=== PATIENT | female | born 1950 | race Caucasian/White ===

== ENCOUNTER 2022-03-22 18:45 | Emergency (ER) | payer MEDICARE, BC ==
[~2022-03-22] VITALS: Ht 152.4 cm; Wt 81.8 kg
[~2022-03-22 18:45] MED LIST: ASPIRIN 81M81 MG/TA2 PO; ATARAX 25MG25 MG/TAB PO; BENTYL 10MG10 MG/CAP PO; CALCITRIOL PO; LIPITOR 40MG TA40 MG PO; NEURONTIN100 MG/CAP PO; NUPLAZID34 MG PO; PRILOSEC 20MG20 MG PO; SINEMET 25/101 UDTAB PO; TRELEGY ELLIPT1 EACH IH; TYLENOL 500MG500 MG PO; VICTOZA6 MG/ML SQ
[2022-03-22 19:09] LABS: BASO % 0.6 % (0.0-2.0); EOS # 0.1 K/mm3 (0.0-0.7); EOS % 1.4 % (0.0-4.0); GRAN # 4.4 K/mm3 (1.4-6.5); GRAN % 67.3 % (42.2-75.2); HEMOGLOBIN 10.2 g/dl (12.5-16.0); LYMPH # 1.3 K/mm3 (1.2-3.4); LYMPH % 20.2 % (20.0-51.0); MEAN CELL VOLUME 96 fl (80.0-100.0); MEAN CORPUSCULAR HEMOGLOBIN 28 pg (27-31); MEAN CORPUSCULAR HGB CONC 30 g/dl (33.0-37.0); MEAN PLATELET VOLUME 10.1 fl (7.4-10.4); MONO # 0.7 K/mm3 (0.1-0.6); MONO % 10.2 % (1.7-9.3); PLATELET COUNT 234 K/mm3 (130-400); RED BLOOD COUNT 3.59 M/mm3 (4.10-5.30); REDCELL DISTRIBUTION WIDTH-CV 16.8 % (11.5-14.5)
[2022-03-22 19:13] LABS: HEMATOCRIT 34.5 % (37.0-47.0)
[2022-03-22 19:31] LABS: ALBUMIN 3.1 gm/dL (3.4-4.8); BILIRUBIN,TOTAL 0.4 mg/dL (0.2-1.2); CREATININE, serum 2.71 mg/dL (0.57-1.11); POTASSIUM 4.3 mmol/L (3.5-4.5); TOTAL PROTEIN 6.5 gm/dL (6.2-8.1)
[2022-03-22 22:20] LABS: COLLECTION METHOD CLEAN CATCH
[2022-03-22 22:26] LABS: MUCOUS Present (NOT PRESENT); SQUAMOUS EPITHELIAL 0-2 /hpf (0-10); URINE APPEARANCE Clear (CLEAR/HAZY); URINE BACTERIA None Seen /hpf (NONE SEEN); URINE BLOOD Negative (NEGATIVE); URINE COLOR Yellow (YELLOW); URINE GLUCOSE Negative (NEGATIVE); URINE KETONE Negative (NEGATIVE); URINE NITRATE Negative (NEGATIVE); URINE PROTEIN(semi-quant) 2+ (NEGATIVE); URINE RBC 0-2 /hpf (0-2); URINE UROBILINOGEN 0.2 E.U/dL (0.2-1.0)
[2022-03-23 02:00] VITALS: TEMP 98.5
[2022-03-23 08:03] VITALS: BP 105/72; PULSE 80
== END 2022-03-23 08:10 | disposition short-term general hospital (02) ==
LOC: COL.ER 18:45
PROVIDERS: Family Medicine
DX: R06.03 Acute respiratory distress (principal); E11.22 Type 2 diabetes mellitus with diabetic chronic kidney disease; N18.6 End stage renal disease; Z99.2 Dependence on renal dialysis; Z87.891 Personal history of nicotine dependence; Z20.822 Contact with and (suspected) exposure to COVID-19
CPT/HCPCS: J1940

== ENCOUNTER 2022-06-23 14:23 | Observation (INO) | payer MEDICARE, BC ==
[~2022-06-23] VITALS: Ht 152.4 cm; Wt 80.4 kg
[2022-06-23 15:55] LABS: HEMOGLOBIN 11.1 g/dl (12.5-16.0); MEAN CELL VOLUME 89 fl (80.0-100.0); MEAN CORPUSCULAR HEMOGLOBIN 29 pg (27-31); MEAN CORPUSCULAR HGB CONC 32 g/dl (33.0-37.0); MEAN PLATELET VOLUME 9.8 fl (7.4-10.4); PLATELET COUNT 195 K/mm3 (130-400); RED BLOOD COUNT 3.88 M/mm3 (4.10-5.30); REDCELL DISTRIBUTION WIDTH-CV 14.6 % (11.5-14.5)
[2022-06-23 15:59] LABS: HEMATOCRIT 34.7 % (37.0-47.0)
[2022-06-23 16:12] LABS: ALBUMIN 3.1 gm/dL (3.4-4.8); ALKALINE PHOSPHATASE 126 U/L (40-150); ANION GAP 12 mmol/L (7-16); AST,SGOT 11 U/L (5-34); BILIRUBIN,TOTAL 0.5 mg/dL (0.2-1.2); BLOOD UREA NITROGEN 32 mg/dL (10-20); CALCIUM 8.4 mg/dL (8.4-10.2); CARBON DIOXIDE 29 mmol/L (23-31); CHLORIDE 101 mmol/L (98-107); CREATININE, serum 2.64 mg/dL (0.57-1.11); GLUCOSE 221 mg/dL (70-99); POTASSIUM 3.9 mmol/L (3.5-4.5); SODIUM 142 mmol/L (136-145); TOTAL PROTEIN 5.6 gm/dL (6.2-8.1)
[2022-06-23 16:25] LABS: ALANINE AMINOTRANSFERASE < 6 U/L (0-55)
[2022-06-23 16:32] LABS: BAND 4 % (0-10); EOSINOPHIL 4 % (0-4); LYMPHOCYTE 19 % (20.0-51.0); NEUTROPHILS 71 % (42.0-75.2); OVALOCYTES 1+; PLATELET ESTIMATE NORMAL (NORMAL)
[2022-06-23 17:19] LABS: COLLECTION METHOD CATHETER
[2022-06-23 17:24] LABS: URINE APPEARANCE Hazy (CLEAR/HAZY); URINE COLOR Yellow (YELLOW)
[2022-06-23 17:25] LABS: PH 8.5 (5.0-8.5); URINE BLOOD 2+ (NEGATIVE); URINE GLUCOSE Negative (NEGATIVE); URINE KETONE Negative (NEGATIVE); URINE NITRATE Negative (NEGATIVE); URINE PROTEIN(semi-quant) 2+ (NEGATIVE); URINE UROBILINOGEN 0.2 E.U/dL (0.2-1.0)
[2022-06-23 17:27] LABS: MUCOUS Present (NOT PRESENT); URINE BACTERIA None Seen /hpf (NONE SEEN); URINE RBC 20-50 /hpf (0-2)
[2022-06-23 20:16] VITALS: BP 122/68; PULSE 76; TEMP 98.2
[2022-06-23 22:39] LABS: INR 1.5 (0.8-3.0); PROTHROMBIN TIME 17.6 SECONDS (9.7-12.8)
--- NOTE | 2022-06-23 23:00 | NUR ---
Patient arrived to the floor at 2012 via ED cart, with IV to right forearm, fistula on left forearm, with dialysis catheter on the right upper chest, dressing CDI, admission assessment done, medrec done, hospital policies orientated, instructed to be on NPO starting 12 midnight in preparation for colonoscopy at 1500 tomorrow, had a bm looks like chunk chocolate milk with a hint of blood, bowel prep facilitated, denies pain, denies further needs, call light and personal items within reach, will continue to monitor.
[2022-06-23] MEDS ORDERED: MUCINEX 60600 MG/TA1 PO (23:28)
[2022-06-23] MEDS ORDERED: NORCO 325 MG-51 TAB PO (23:29)
[2022-06-23] MEDS ORDERED: ZOFRAN 4MG T4 MG/TAB PO (23:31)
[2022-06-23] MEDS ORDERED: ELIQUIS 5MG PO (23:32)
[2022-06-23] MEDS ORDERED: MIRALAX PA17 GM/Dose PO (23:32)
[2022-06-23] MEDS ORDERED: DESYREL 50MG50 MG PO (23:34)
[2022-06-23] MEDS ORDERED: COREG 6.256.25 MG/TA PO (23:35)
[2022-06-23] MEDS ORDERED: VENTOLIN0.09 MG (23:37)
[2022-06-23] MEDS ORDERED: MYLANTA COAT-C355 ML (23:38)
[2022-06-24] VITALS (12 sets, daily range): BP systolic 101–142; BP diastolic 33–65; PULSE 73–85; TEMP 97.5–98.9
--- NOTE | 2022-06-24 06:55 | NUR ---
awake resting in bed, bedside shift report received from KIMBERLY Mendoza
[2022-06-24 07:30] LABS: HEMOGLOBIN 11.2 g/dl (12.5-16.0); MEAN CELL VOLUME 92 fl (80.0-100.0); MEAN CORPUSCULAR HEMOGLOBIN 29 pg (27-31); MEAN CORPUSCULAR HGB CONC 32 g/dl (33.0-37.0); MEAN PLATELET VOLUME 10.1 fl (7.4-10.4); PLATELET COUNT 190 K/mm3 (130-400); RED BLOOD COUNT 3.82 M/mm3 (4.10-5.30); REDCELL DISTRIBUTION WIDTH-CV 14.6 % (11.5-14.5)
[2022-06-24 07:32] LABS: HEMATOCRIT 35.1 % (37.0-47.0)
[2022-06-24 07:52] LABS: CALCIUM 8.4 mg/dL (8.4-10.2); CREATININE, serum 2.5 mg/dL (0.57-1.11); PHOSPHOROUS 4.5 mg/dL (2.3-4.7); POTASSIUM 3.7 mmol/L (3.5-4.5)
--- NOTE | 2022-06-24 08:00 | NUR ---
appears to be dozing, awakened and full assessment completed, see interventions for further info, will plan for dialysis at 0830, denies needs at this time
[2022-06-24 08:13] LABS: EOSINOPHIL 2 % (0-4); LYMPHOCYTE 26 % (20.0-51.0); NEUTROPHILS 65 % (42.0-75.2); PLATELET ESTIMATE NORMAL (NORMAL)
--- NOTE | 2022-06-24 08:38 | NUR ---
was up to bedside commode and had small bloody stool
--- NOTE | 2022-06-24 09:30 | NUR ---
to dialysis per WC
--- NOTE | 2022-06-24 09:44 | NUR ---
Initial visit; Patient says she resides at [facility] and likes her Performance Improvement Specialist there. Julia says she has no spiritual needs but thanked Performance Improvement Specialist for looking in on her.
--- NOTE | 2022-06-24 11:16 | NUR ---
remains in dialysis
--- NOTE | 2022-06-24 12:19 | NUR ---
she remains in dialysis, son called to check on patient and said his mom is very concerned about her left eye, GIULIANO Ye called and notified of pateint's concern, she was aware of this and will talk with Dr Go
[2022-06-24 12:21] LABS: HEMATOCRIT 35.1 % (37.0-47.0); HEMOGLOBIN 11.5 g/dl (12.5-16.0)
--- NOTE | 2022-06-24 14:02 | NUR ---
returned per WC from dialysis, consent for EGD and colonoscopy signed, endo nurse and to endoscopy for procedure, patient remains alert and oriented, ambulates with steady gait
--- NOTE | 2022-06-24 15:17 | NUR ---
Report recieved from KIMBERLY Wilkes. Patient back up from EGD/Colon at 1510. Dynmap attached for post op vitals. VSS. Patient A&O. Patient denies any pain, discomfort, SOA, or further needs at this time. Call light in reach. Fall percautions in place.
--- NOTE | 2022-06-24 15:43 | NUR ---
Patient down to CT
--- NOTE | 2022-06-24 16:25 | NUR ---
Quality Management Nurse met with Patient at bedside to conduct Care Managment Assessment and discuss discharge Planing. Patient was admitted from [facility] and intends to return. Patient reports that her son, Cr is emeka best familial point of contact P: [phone]. Patient reports to be established with Dr. Baugh. Patient denies the use of O2, endorses the use of a 4WW prior to admission. Patient reports to have AD on file. Discharge Plan: Return to [facility].
--- NOTE | 2022-06-24 18:30 | NUR ---
Patient has had an uneventful afternoon. Currenltly resting in bed. Denies any pain, discomfort, SOA, or further needs at this time. Call light in reach. Fall percautions in place.
--- NOTE | 2022-06-24 20:31 | NUR ---
Patient was pretty tired from all the procedures done for her today, reports headache and tylenol given per request, INT to right forearm infusing well, reports that she still pooping blood, denies further needs, call light and personal items within reach, will continue to monitor.
[2022-06-25] VITALS (10 sets, daily range): BP systolic 127–153; BP diastolic 43–67; PULSE 72–76; TEMP 98–98.4
[2022-06-25 07:20] LABS: BASO % 0.3 % (0.0-2.0); EOS # 0.3 K/mm3 (0.0-0.7); EOS % 4.4 % (0.0-4.0); GRAN # 3.5 K/mm3 (1.4-6.5); GRAN % 59.7 % (42.2-75.2); HEMOGLOBIN 11.1 g/dl (12.5-16.0); LYMPH # 1.4 K/mm3 (1.2-3.4); LYMPH % 23.4 % (20.0-51.0); MEAN CELL VOLUME 93 fl (80.0-100.0); MEAN CORPUSCULAR HEMOGLOBIN 29 pg (27-31); MEAN CORPUSCULAR HGB CONC 31 g/dl (33.0-37.0); MEAN PLATELET VOLUME 10.3 fl (7.4-10.4); MONO # 0.6 K/mm3 (0.1-0.6); MONO % 10.8 % (1.7-9.3); PLATELET COUNT 180 K/mm3 (130-400); RED BLOOD COUNT 3.84 M/mm3 (4.10-5.30); REDCELL DISTRIBUTION WIDTH-CV 14.8 % (11.5-14.5)
[2022-06-25 07:21] LABS: HEMATOCRIT 35.6 % (37.0-47.0)
[2022-06-25 07:24] LABS: ALBUMIN 3.1 gm/dL (3.4-4.8); CALCIUM 8.9 mg/dL (8.4-10.2); CREATININE, serum 1.91 mg/dL (0.57-1.11); POTASSIUM 3.9 mmol/L (3.5-4.5)
--- NOTE | 2022-06-25 10:11 | NUR ---
PATIENT ALERT AND ORIENTED X4. VSS. PATIENT DENIES ANY PAIN AT THIS TIME. IV TO RIGHT FA, INT, FLUSHES WELL. DIALYSIS CATH TO RIGHT UPPER CHEST, TEGADERM CDI. PATIENT CONTINUES TO HAVE BLOOD IN STOOL. PATIENT COMPLAINS OF LEFT EYE BLURRED VISION WITH FLOATERS. PATIENT EATING BREAKFAST AND RESTING IN BED. CALL LIGHT IN REACH.
--- NOTE | 2022-06-25 23:58 | NUR ---
Shift asssessment performed- see documentation. Pt is alert and oriented. SHe is on room air. Pt states that she is in a 6/10 pain in her back. PRN Tylenol administered as ordered- see eMar. I assisted pt to the bathroom for her to void. She states that when she stands, she feels the blood start to ehrring out of her. She did drip blood on the floor when she had taken her brief off. however there was minimal-moderate amount of blood present in her peripad. SHe was assisted back to bed and was comfortable. At about 2240 she called complaining of pain in in her right leg/groin area. She states that it is a shooting pain that comes and goes regardless of what she is doing. The area is free of any visual markers. I applied heat to the area and she stated that this help with pain relief. I recommended that she get up and walk. She states that the pain is now relieved.
[2022-06-26] VITALS (7 sets, daily range): BP systolic 126–153; BP diastolic 41–56; PULSE 70–78; TEMP 98–98.2
[2022-06-26 07:31] LABS: BASO % 0.4 % (0.0-2.0); EOS # 0.3 K/mm3 (0.0-0.7); EOS % 4.6 % (0.0-4.0); GRAN # 3.2 K/mm3 (1.4-6.5); GRAN % 55.7 % (42.2-75.2); HEMOGLOBIN 10.8 g/dl (12.5-16.0); LYMPH # 1.5 K/mm3 (1.2-3.4); MEAN CELL VOLUME 91 fl (80.0-100.0); MEAN CORPUSCULAR HEMOGLOBIN 29 pg (27-31); MEAN CORPUSCULAR HGB CONC 32 g/dl (33.0-37.0); MEAN PLATELET VOLUME 9.9 fl (7.4-10.4); MONO # 0.7 K/mm3 (0.1-0.6); MONO % 12.2 % (1.7-9.3); PLATELET COUNT 170 K/mm3 (130-400); RED BLOOD COUNT 3.73 M/mm3 (4.10-5.30); REDCELL DISTRIBUTION WIDTH-CV 14.8 % (11.5-14.5)
[2022-06-26 07:36] LABS: HEMATOCRIT 34.1 % (37.0-47.0)
[2022-06-26 07:48] LABS: CALCIUM 8.6 mg/dL (8.4-10.2); CREATININE, serum 2.39 mg/dL (0.57-1.11); PHOSPHOROUS 4.8 mg/dL (2.3-4.7)
--- NOTE | 2022-06-26 09:00 | NUR ---
PATIENT ALERT AND ORIENTED X4. VSS. PATIENT HERE FOR GI BLEED/EGD/COLON. PATIENT REPORTS BLOODY STOOL THIS AM. PATIENT REPORTS INCREASED PAIN IN ABDOMEN. IV TO RIGHT FA, INT FLUSHES WELL. LEFT FA FISTULA. RIGHT UPPER CHEST DIALYSIS CATH, DRESSING CDI. PATIENT RESTING IN CHAIR, CALL LIGHT IN REACH.
--- NOTE | 2022-06-26 14:37 | NUR ---
DISCHARGE PACKET/TRANSFER PACKET GIVEN TO TRANSPORTER. IV DC'D. REPORT CALLED TO NURSE AT [facility]. PATIENT AND BELONGINGS ESCORTED OUT VIA WHEELCHAIR.
== END 2022-06-26 14:35 ==
LOC: COL.ER 14:23 → SURG 17:23
PROVIDERS: Physician Assistant; Registered Nurse; ADMIT Internal Medicine Nephrology
DX: K63.5 Polyp of colon (principal); K57.31 Diverticulosis of large intestine without perforation or abscess with bleeding; R19.5 Other fecal abnormalities; K64.1 Second degree hemorrhoids; N18.6 End stage renal disease; I50.22 Chronic systolic (congestive) heart failure; E11.22 Type 2 diabetes mellitus with diabetic chronic kidney disease; N39.0 Urinary tract infection, site not specified; I31.39 Other pericardial effusion (noninflammatory); E11.319 Type 2 diabetes mellitus with unspecified diabetic retinopathy without macular edema; Z79.01 Long term (current) use of anticoagulants; Z79.84 Long term (current) use of oral hypoglycemic drugs; Z99.2 Dependence on renal dialysis
CPT/HCPCS: C9113; G0378; J0696; J1815; J2370; J2405; J2704; J7030

== ENCOUNTER 2023-10-11 17:47 | Inpatient (IN) | payer MEDICARE, BC ==
[~2023-10-11] VITALS: Ht 152.4 cm; Wt 58.4 kg
[~2023-10-11 17:47] MED LIST changes: +ALBUTEROL1.25 MG/3 IH; +ASPIRIN E.C. 8181 MG PO; +CEPHALEXIN500 M1 PO; +COREG 3.123.125 MG/T PO; +COREG 6.256.25 MG/TA PO; +DEMADEX100 MG PO; +DESYREL 50MG50 MG PO; +ELIQUIS 5MG PO; +IPRATROPIUM BROM3 M1 IH; +MIRALAX PA17 GM/Dose PO; +MUCINEX 60600 MG/TA1 PO; +MYLANTA COAT-C355 ML; +MYLANTA MAXIMU355 M1 PO; +NORCO 325 MG-51 TAB PO; +PHOS LO; +PHOS LO PO; +PREDNISONE50 MG PO; +PROAMATINE 5MG T5 MG PO; +PROTONIX 40MG T40 MG PO; +TOPROL XL 25MG25 MG PO; +TRELEGY ELLIPT1 EAC1 IH; +VENTOLIN0.09 MG; +ZOFRAN 4MG T4 MG/TAB PO
[2023-10-11] MEDS ORDERED: Ondansetron 4 MG/2 ML VIAL IV ONE (18:30)
[2023-10-11] MEDS ORDERED: NS 250 ML IV ONE (18:30)
[2023-10-11 18:57] LABS: BASO % 0.5 % (0.0-2.0); EOS # 0.2 K/mm3 (0.0-0.7); EOS % 3.8 % (0.0-4.0); GRAN # 3.5 K/mm3 (1.4-6.5); GRAN % 63.4 % (42.2-75.2); HEMATOCRIT 37.1 % (37.0-47.0); LYMPH % 17.9 % (20.0-51.0); MEAN CELL VOLUME 96 fl (80.0-100.0); MEAN CORPUSCULAR HEMOGLOBIN 31 pg (27-31); MEAN CORPUSCULAR HGB CONC 32 g/dl (33.0-37.0); MEAN PLATELET VOLUME 10.3 fl (7.4-10.4); MONO # 0.8 K/mm3 (0.1-0.6); MONO % 13.9 % (1.7-9.3); PLATELET COUNT 145 K/mm3 (130-400); RED BLOOD COUNT 3.87 M/mm3 (4.10-5.30); REDCELL DISTRIBUTION WIDTH-CV 14.4 % (11.5-14.5)
[2023-10-11 19:12] LABS: ALBUMIN 3.4 g/dL (3.4-4.8); BILIRUBIN,TOTAL 1.1 mg/dL (0.2-1.2); C-REACTIVE PROTEIN 3.15 mg/dL (0.00-0.50); CALCIUM 8.8 mg/dL (8.4-10.2); CREATININE, serum 2.13 mg/dL (0.57-1.11); POTASSIUM 3.6 mEq/L (3.5-4.5); TOTAL PROTEIN 6.8 g/dl (6.2-8.1)
[2023-10-11 19:17] LABS: TROPONIN-I 0.012 ng/mL (0.00-0.033)
[2023-10-11 20:07] LABS: COLLECTION METHOD CATHETER
[2023-10-11 20:20] LABS: PH 7.5 (5.0-8.5); URINE APPEARANCE CLEAR (CLEAR/HAZY); URINE BLOOD NEGATIVE (NEGATIVE); URINE COLOR YELLOW (YELLOW); URINE GLUCOSE NEGATIVE (NEGATIVE); URINE KETONE NEGATIVE (NEGATIVE); URINE NITRATE NEGATIVE (NEGATIVE); URINE PROTEIN(semi-quant) 2+ (NEGATIVE); URINE UROBILINOGEN 0.2 E.U/dL (0.2-1.0)
[2023-10-11] MEDS ORDERED: Iohexol 300 - 100 ML VIAL IV ONE (21:46)
[2023-10-12] VITALS (10 sets, daily range): BP systolic 96–134; BP diastolic 35–74; PULSE 70–81; TEMP 97.9–98.4
[2023-10-12] MEDS ORDERED: Acetaminophen 325 MG TAB PO PRN
[2023-10-12] MEDS ORDERED: Ondansetron 4 MG/2 ML VIAL IV PRN (00:10)
[2023-10-12] MEDS ORDERED: SENNA-LAX8.6 MG PO (00:20)
[2023-10-12] MEDS ORDERED: ANTI-DIARRHEAL2 MG PO (00:23)
--- NOTE | 2023-10-12 01:20 | NUR ---
pt arrived via wheelchair to room 324. assessment and intake completed at this time. pt a&ox4. pt reports 7/10 pain located in her back. prn tyelnol administered at this time. pt denies nausea and sob but arrives with 2L per nc. pt denies chest pain and dizziness at this time but reports headache. int in right ac. dialysis fistula located in left upper arm, covered with gauze, c,d,i. fall precautions in place. call light within reach. no further needs at this time.
--- NOTE | 2023-10-12 01:58 | NUR ---
Pt arrived from ED, alert and oriented x4. deies chest pain and shortness of breath. initial assessment performed. IV in RAC is patent, MARTINEZ with AV fistula, sites CDI left extremity restricted. life vest on pt at this time. pt has no further needs, questions, or concerns. fall precautions in place, call light within reach. this RN verified BURAK Lucero assessment and admission at this time. pt needs met at this time.
--- NOTE | 2023-10-12 08:41 | NUR ---
PT ALERT AND EATING BREAKFAST IN BED. MEDS GIVEN PER ORDER. HEAD TO TOE ASSESSMENT COMPLETE. PT DENIES PAIN. O2 ON 2 L NASAL CANNULA. FALL PRECAUTIONS IN PLACE. CALL LIGHT WITHIN REACH. NO FURTHER NEEDS.
[2023-10-12] MEDS ORDERED: Polyethylene Glycol 3350 17 GM PDS PO PRN ×2 (09:00→12:00)
[2023-10-12] MEDS ORDERED: Pantoprazole 40 MG in NS 10 ML IV SCH (09:00)
[2023-10-12] MEDS ORDERED: Albuterol/Ipratropium 3 MG-0.5 MG/3 ML Neb Soln IH PRN (11:45)
[2023-10-12] MEDS ORDERED: Calcium Acetate 667 MG TAB/CAP PO SCH (12:30)
--- NOTE | 2023-10-12 12:43 | NUR ---
structural steel worker apprentice met with pt to discuss discharge planning. She confirms to reside at [facility]. She sees Dr. Ritter for PCP needs and obtains medications from [facility] with no difficulties. She reports her son, Oskar [phone] as her contact and DPOA-HC. BLAKE verified this on file. She reports to be indpendent with ADLS and uses a FWW and oxygen with her CPAP at night for DME. She intends to return to [facility] upon discharge. BLAKE emailed updates to Riley at [facility]. Discharge Plan: return to [facility]
--- NOTE | 2023-10-12 14:16 | NUR ---
D: Medical Biller Coder stopped by room on rounds. A: Pt was resting and content with family in the room. Pt has no needs right now. P: Medical Biller Coder informed pt that if she needed anything from the inspector soldering area to let her nurse know. Medical Biller Coder will follow up as needed.
[2023-10-12] MEDS ORDERED: Budesonide Neb Susp 0.5 MG/2 ML AMP IH SCH (19:00)
[2023-10-12] MEDS ORDERED: Atorvastatin 40 MG TAB PO SCH (21:00)
[2023-10-12] MEDS ORDERED: Gabapentin 100 MG CAP PO SCH (21:00)
--- NOTE | 2023-10-12 21:00 | NUR ---
PT A&O X4 LAYING IN BED. VSS ON 2L/NC. PT ON TELE. AMBULATED TO RESTROOM WITH SBA. DENYING PAIN OR N/V. PT WEARING LIFE VEST. DENYING NEEDS. CALL LIGHT IN REACH & FALL PRECAUTIONS IN PLACE
[2023-10-13] VITALS (7 sets, daily range): BP systolic 106–139; BP diastolic 62–81; PULSE 66–74; TEMP 97.7–98
--- NOTE | 2023-10-13 06:02 | NUR ---
PT RESTING IN BED WITH UNLABORED RESP. INT TO AC NOT PATENT, NEW INT TO RT FOREARM STARTED BY ICU NURSE CARRIE. PT DENYING OTHER NEEDS THIS MORNING. CALL LIGHT IN REACH
[2023-10-13 07:06] LABS: CALCIUM 9.6 mg/dL (8.4-10.2); CREATININE, serum 3.57 mg/dL (0.57-1.11)
[2023-10-13] MEDS ORDERED: NS 1,000 ML IV SCH (07:45)
--- NOTE | 2023-10-13 07:45 | NUR ---
PT ALERT AND RESTING IN BED. MEDS GIVEN PER ORDER. PT DENIES PAIN. HEAD TO TOE ASSESSMENT COMPLETE. PLAN FOR DIALYSIS LATER TODAY. BED IN LOWEST POSITION. CALL LIGHT WITHIN REACH. NO FURTHER NEEDS.
[2023-10-13] MEDS ORDERED: Fluticasone/Umeclidinium/Vilanterol **** subs to Budesonide + Umeclid/Vilant IH SCH (09:00)
[2023-10-13] MEDS ORDERED: Umeclidinium/Vilanterol 62.5-25 MCG INHALATION/INHALER IH SCH (09:00)
--- NOTE | 2023-10-13 11:20 | NUR ---
pt taken to dialysis by wheelchair.
--- NOTE | 2023-10-13 14:05 | NUR ---
pt back in room from dialysis. pt tolerated well, bp in normal limits.
--- NOTE | 2023-10-13 14:14 | NUR ---
Dialysis note Pt arrived to tx via WC goal set for 1 kg. pt taken off tx 30 min early d/t clotting in tien chamber. Blood returned. pt dcd back to room without compaints
--- NOTE | 2023-10-13 14:41 | NUR ---
PT DRESSED IN PERSON CLOTHING. IV TO RIGHT FOREARM DISCONTINUED. PRESSURE DRESSING APPLIED. AWAITING TRANSPORTATION TO [facility]. CALL LIGHT WITHIN REACH. NO FURTHER NEEDS.
--- NOTE | 2023-10-13 14:49 | NUR ---
color drum worker attended clinical rounding and was informed pt can discharge after diaylsis today. SW faxed discharge orders to [facility] who can transport at 3:15pm. BLAKE informed [employer] and KIMBERLY Lewis of transport time and they were agreeable. Discharge Plan: 3:15pm return to [facility]
--- NOTE | 2023-10-13 15:53 | NUR ---
REPORT CALLED TO [facility]. ANSWERED ALL QUESTIONS. NO FURTHER NEEDS.
== END 2023-10-13 15:31 | DRG 189 ==
LOC: COL.ER 17:47 → SURG 10-12 00:10
PROVIDERS: Nurse Practitioner; ADMIT Internal Medicine
PROC: 5A1D70Z Performance of Urinary Filtration, Intermittent, Less than 6 Hours Per Day (ICD-10-PCS; principal; 2023-10-13)
DX: J96.21 Acute and chronic respiratory failure with hypoxia (principal); N18.6 End stage renal disease; I13.2 Hypertensive heart and chronic kidney disease with heart failure and with stage 5 chronic kidney disease, or end stage renal disease; I50.22 Chronic systolic (congestive) heart failure; I42.8 Other cardiomyopathies; I95.1 Orthostatic hypotension; I95.3 Hypotension of hemodialysis; E03.9 Hypothyroidism, unspecified; G20.A1 Parkinson's disease without dyskinesia, without mention of fluctuations; K21.9 Gastro-esophageal reflux disease without esophagitis; E11.22 Type 2 diabetes mellitus with diabetic chronic kidney disease; D50.9 Iron deficiency anemia, unspecified; I25.10 Atherosclerotic heart disease of native coronary artery without angina pectoris; Z20.822 Contact with and (suspected) exposure to COVID-19; I44.7 Left bundle-branch block, unspecified; G47.33 Obstructive sleep apnea (adult) (pediatric); D64.9 Anemia, unspecified; R91.8 Other nonspecific abnormal finding of lung field; E86.0 Dehydration; E78.5 Hyperlipidemia, unspecified; Z86.73 Personal history of transient ischemic attack (TIA), and cerebral infarction without residual deficits; Z91.040 Latex allergy status; Z99.2 Dependence on renal dialysis; Z87.891 Personal history of nicotine dependence; Z79.82 Long term (current) use of aspirin; Z79.899 Other long term (current) drug therapy; Z23 Encounter for immunization
CPT/HCPCS: J2405; J2470; J7050; Q3014; Q9967

== ENCOUNTER 2023-12-17 19:15 | Emergency (ER) | payer MEDICARE, BC ==
[~2023-12-17] VITALS: Ht 152.4 cm; Wt 75.0 kg
[~2023-12-17 19:15] MED LIST changes: +ANTI-DIARRHEAL2 MG PO; +SENNA-LAX8.6 MG PO
[2023-12-17 19:20] VITALS: TEMP 98.2
[2023-12-17 20:10] LABS: PROTHROMBIN TIME 10.5 SECONDS (9.7-12.8)
[2023-12-17 20:23] LABS: ALBUMIN 3.7 g/dL (3.4-4.8); ALKALINE PHOSPHATASE 98 U/L (40-150); ANION GAP 18 mmol/L (7-16); AST,SGOT 16 U/L (5-34); BILIRUBIN,TOTAL 0.6 mg/dL (0.2-1.2); BLOOD UREA NITROGEN 56 mg/dL (10-20); C-REACTIVE PROTEIN 0.15 mg/dL (0.00-0.50); CALCIUM 9.5 mg/dL (8.4-10.2); CHLORIDE 98 mEq/L (98-107); CREATININE, serum 3.97 mg/dL (0.57-1.11); GLUCOSE 80 mg/dL (70-99); LIPASE 21 U/L (8-78); POTASSIUM 4.2 mEq/L (3.5-4.5); SODIUM 139 mEq/L (136-145); TOTAL PROTEIN 6.7 g/dl (6.2-8.1)
[2023-12-17 20:25] LABS: ALANINE AMINOTRANSFERASE < 6 U/L (0-55)
[2023-12-17 20:30] LABS: TROPONIN-I 0.021 ng/mL (0.00-0.033)
[2023-12-17 20:44] LABS: BASO % 0.5 % (0.0-2.0); EOS # 0.1 K/mm3 (0.0-0.7); GRAN # 3.3 K/mm3 (1.4-6.5); GRAN % 59.3 % (42.2-75.2); HEMATOCRIT 35.3 % (37.0-47.0); HEMOGLOBIN 11.7 g/dl (12.5-16.0); LYMPH # 1.3 K/mm3 (1.2-3.4); LYMPH % 24.3 % (20.0-51.0); MEAN CELL VOLUME 94 fl (80.0-100.0); MEAN CORPUSCULAR HEMOGLOBIN 31 pg (27-31); MEAN CORPUSCULAR HGB CONC 33 g/dl (33.0-37.0); MEAN PLATELET VOLUME 10.7 fl (7.4-10.4); MONO # 0.7 K/mm3 (0.1-0.6); PLATELET COUNT 185 K/mm3 (130-400); RED BLOOD COUNT 3.75 M/mm3 (4.10-5.30)
[2023-12-17 21:01] LABS: COLLECTION METHOD CATHETER
[2023-12-17 21:10] LABS: URINE APPEARANCE CLOUDY (CLEAR/HAZY); URINE BLOOD NEGATIVE (NEGATIVE); URINE COLOR YELLOW (YELLOW); URINE GLUCOSE NEGATIVE (NEGATIVE); URINE KETONE TRACE (NEGATIVE); URINE NITRATE NEGATIVE (NEGATIVE); URINE PROTEIN(semi-quant) TRACE (NEGATIVE); URINE UROBILINOGEN 0.2 E.U/dL (0.2-1.0)
[2023-12-17 21:24] LABS: MUCOUS PRESENT (NOT PRESENT); URINE RBC NONE SEEN /hpf (0-2); URINE WBC None Seen /hpf (0-2)
[2023-12-17 21:25] LABS: URINE BACTERIA OCCASIONAL /hpf (NONE SEEN)
[2023-12-17] MEDS ORDERED: Iohexol 300 - 100 ML VIAL IV ONE (23:37)
[2023-12-17] MEDS ORDERED: NS 50 ML IV ONE (23:38)
[2023-12-18] MEDS ORDERED: ZOFRAN ODT4 MG PO (01:27)
[2023-12-18 01:55] VITALS: BP 134/56; PULSE 74
[2023-12-26] MEDS ORDERED: PHOSLO667 MG PO (09:42)
[2023-12-26] MEDS ORDERED: SENNA-LAX8.6 MG PO (09:47)
[2023-12-26] MEDS ORDERED: MIRALAX PA17 GM/Dose PO (09:47)
[2023-12-26] MEDS ORDERED: PROAMATINE 5MG T5 MG PO (09:48)
[2023-12-26] MEDS ORDERED: ZOFRAN ODT4 MG PO (09:50)
[2023-12-26] MEDS ORDERED: ANTI-DIARRHEAL2 MG PO (09:51)
[2023-12-26] MEDS ORDERED: ATROVENT I0.2 MG/1 M IH (09:52)
== END 2023-12-18 01:55 | disposition home or self-care (01) ==
LOC: COL.ER 19:15
PROVIDERS: Emergency Medicine
DX: R11.2 Nausea with vomiting, unspecified (principal); R07.9 Chest pain, unspecified
CPT/HCPCS: Q9967

== ENCOUNTER → 2023-12-28 | Outpatient (CLI) | payer MEDICARE ==
[~2023-12-28] VITALS: Ht 152.4 cm; Wt 75.8 kg
[~2023-12-28] MED LIST changes: +ATROVENT I0.2 MG/1 M IH; +PHOSLO667 MG PO; +Regadenoson 0.08 MG/ML 5 ML SYRINGE IV SCH; +ZOFRAN ODT4 MG PO
[2023-12-28 08:40] VITALS: BP 133/75; PULSE 85; TEMP 97.5
[2023-12-28 09:46] VITALS: BP 133/83; PULSE 72
[2023-12-28 09:51] VITALS: BP 101/62; PULSE 75
[2023-12-28 09:52] VITALS: BP 87/57; PULSE 76
[2023-12-28 09:53] VITALS: BP 99/64; PULSE 77
== END ==
LOC: COL.RAD 12-27 09:20
DX: I25.119 Atherosclerotic heart disease of native coronary artery with unspecified angina pectoris (principal)
CPT/HCPCS: A9500-JZ; J2785

== ENCOUNTER 2024-01-26 06:13 | Emergency (ER) | payer MEDICARE, BC, MEDICAID ==
[~2024-01-26] VITALS: Ht 152.4 cm; Wt 75.0 kg
[~2024-01-26 06:13] MED LIST changes: -Regadenoson 0.08 MG/ML 5 ML SYRINGE IV SCH
[2024-01-26 06:20] VITALS: TEMP 97.1
[2024-01-26 06:48] LABS: BASO % 0.5 % (0.0-2.0); EOS # 0.5 K/mm3 (0.0-0.7); EOS % 6.6 % (0.0-4.0); GRAN % 64.2 % (42.2-75.2); HEMATOCRIT 38.7 % (37.0-47.0); HEMOGLOBIN 12.1 g/dl (12.5-16.0); LYMPH # 1.4 K/mm3 (1.2-3.4); LYMPH % 17.9 % (20.0-51.0); MEAN CELL VOLUME 100 fl (80.0-100.0); MEAN CORPUSCULAR HEMOGLOBIN 31 pg (27-31); MEAN CORPUSCULAR HGB CONC 31 g/dl (33.0-37.0); MEAN PLATELET VOLUME 10.1 fl (7.4-10.4); MONO # 0.8 K/mm3 (0.1-0.6); MONO % 10.4 % (1.7-9.3); PLATELET COUNT 214 K/mm3 (130-400); RED BLOOD COUNT 3.88 M/mm3 (4.10-5.30); REDCELL DISTRIBUTION WIDTH-CV 14.7 % (11.5-14.5)
[2024-01-26 06:54] LABS: PROTHROMBIN TIME 10.6 SECONDS (9.7-12.8)
[2024-01-26 07:05] LABS: ALBUMIN 4.1 g/dL (3.4-4.8); BILIRUBIN,TOTAL 0.6 mg/dL (0.2-1.2); CREATININE, serum 3.99 mg/dL (0.57-1.11); MAGNESIUM 1.8 mg/dL (1.6-2.6); POTASSIUM 4.5 mEq/L (3.5-4.5); TOTAL PROTEIN 7.3 g/dl (6.2-8.1)
[2024-01-26 07:37] LABS: TROPONIN-I 0.025 ng/mL (0.00-0.033)
[2024-01-26 09:37] VITALS: BP 105/68; PULSE 76
== END 2024-01-26 10:09 | disposition home or self-care (01) ==
LOC: COL.ER 06:13
PROVIDERS: Emergency Medicine
DX: R07.81 Pleurodynia (principal); E11.22 Type 2 diabetes mellitus with diabetic chronic kidney disease; I13.2 Hypertensive heart and chronic kidney disease with heart failure and with stage 5 chronic kidney disease, or end stage renal disease; I50.9 Heart failure, unspecified; N18.6 End stage renal disease; Z99.2 Dependence on renal dialysis; Z95.0 Presence of cardiac pacemaker; Z86.73 Personal history of transient ischemic attack (TIA), and cerebral infarction without residual deficits